=== PATIENT | male | born 1995 | race Caucasian/White ===

== ENCOUNTER → 2017-07-18 | Outpatient (CLI) | payer BC ==
[~2017-07-18] MED LIST: INSDGI SC; NVLGI SQ; SERT-234 PO
[2017-07-18 13:41] LABS: AST/SGOT 23 U/L (15-37); BLOOD UREA NITROGEN 22 mg/dl (7-18); BUN/CREATININE RATIO 27.5 (10-20); CALCIUM 8.5 mg/dl (8.5-10.1); CARBON DIOXIDE 28 mmol/L (21-32); CHLORIDE 101 mmol/L (98-107); CREATININE 0.78 mg/dl (0.60-1.40); GLUCOSE 340 mg/dl (70-99); POTASSIUM 3.8 mmol/L (3.5-5.1); SODIUM 135 mmol/L (136-145)
[2017-07-18 13:45] LABS: ALB/GLOB RATIO 1.2 (0.9-2); ALKALINE PHOSPHATASE 117 U/L (45-117); ALT/SGPT 30 U/L (12-78); CHOLESTEROL 128 mg/dl (0-200); CHOLESTEROL/HDL RATIO 2.6; HDL CHOLESTEROL 49 mg/dl; LDL CHOLESTEROL CALCULATED 11 mg/dl; TRIGLYCERIDES 341 mg/dl (0-150); VERY LOW DENSITY LIPOPROT CALC 68 mg/dl
[2017-07-18 13:52] LABS: BETA-HYDROXYBUTYRATE 1.35 mg/dL (0.2-2.81)
[2017-07-18 14:33] LABS: ESTIMATED AVERAGE GLUCOSE 249 mg/dl; HA1C FLAG Normal (Normal)
[2017-07-18 15:24] LABS: CREATININE RANDOM URINE 64.9 mg/dl
[2017-07-18 15:38] LABS: RATIO 7.8 mcg/mg (0-30.0)
== END | disposition home or self-care (01) ==
LOC: C.LAB1850 11:55
PROVIDERS: ATTEND Physician Assistant
DX: E10.9 Type 1 diabetes mellitus without complications (principal)

== ENCOUNTER → 2017-08-11 | Day surgery (SDC) | payer BC ==
[2017-08-04 08:58] VITALS: Ht 185.4 cm; Wt 92.4 kg
--- NOTE | 2017-08-04 09:24 | PAT Medication Instructions ---
Service Date Aug 04, 2017. Current Home Medication List Doxycycline Monohydrate (Monodox), 100 MG PO BID Insulin Aspart (novoLOG INSULIN PUMP ), 1 EA N/A UD Multivitamin (Multivitamin), 1 TAB PO QAM Medication Instructions For Your Scheduled Surgery - Continue as directed: Insulin Aspart (novoLOG INSULIN PUMP ), 1 EA N/A UD CONTINUE BASAL INSULIN, BUT DO NOT GIVE BOLUS THE MORNING OF THE SURGERY - Hold the following medications the morning of surgery: Multivitamin (Multivitamin), 1 TAB PO QAM - Take the following medications the morning of surgery with a sip of water: Doxycycline Monohydrate (Monodox), 100 MG PO BID - Take the following medications as scheduled the night before surgery: Doxycycline Monohydrate (Monodox), 100 MG PO BID If you have any questions please call us at [phone] or [phone] or [phone]
[~2017-08-11] VITALS: Ht 185.4 cm; Wt 92.4 kg
[~2017-08-11] MED LIST changes: +ATROPINE SULFATE 0.1 MG/ML 5ML SYR IV PRN; +BACITRACIN OINT 15 GM TUBE ONE; +BUPIVACAINE 0.5 % 5 MG/1 ML PF 10ML VIAL ONE; +DEXAMETHASONE SOD INJ 4 MG/ML VIAL ONE; +DOXY100C76 PO; +EpHEDrine SULFATE INJ 50 MG/ML AMP IV PRN; +FENTANYL CITRATE INJ 50 MCG/1 ML 2 ML VIAL IV PRN; +FENTANYL CITRATE INJ 50 MCG/1 ML 2 ML VIAL ONE; +HYDR-5688 PO; -INSDGI SC; +INSPMPNVLG; +LIDOCAINE HCL 2% 2 ML VIAL (20MG/ML) ONE; +MIDAZOLAM HCL 1 MG/ML 2ML VIAL ONE; +MULT-506 PO; -NVLGI SQ; +ONDANSETRON INJ 2 MG/ML 2 ML VIAL IV PRN; +ONDANSETRON INJ 2 MG/ML 2 ML VIAL ONE; +OXYCODONE/ACETAMINOPHEN 5-325 TAB PO PRN; +PROPOFOL IV EMULSION 10 MG/ML 20 ML VIAL IV ONE; -SERT-234 PO; +SODIUM CHLORIDE 0.9% 1000ML 1,000 ML IV SCH
[2017-08-11] MEDS: LACTATED RINGER'S 1000ML 1,000 ML IV SCH ×2 (06:43→08:32)
--- NOTE | 2017-08-11 07:01 | History & Physical Bridge Note ---
H&P Re-Evaluation Bridge Note: I have examined the patient, reviewed the History & Physical and in the interval since the performance of the History & Physical I have noted the following changes of clinical significance: No changes noted
--- NOTE | 2017-08-11 08:03 | Discharge Instructions-SurgCtr ---
Discharge Instructions Date of Service Aug 11, 2017. Visit Reason for Visit: Phimosis Discharge Discharge Diagnosis / Problem: Phimosis Discharge Goals Goal(s): Decrease discomfort, Improve function, Increase independence, Improve disease control Activity Recommendations Activity Limitations: per Instructions/Follow-up section Lifting Limitations: none Exercise/Sports Limitations: none, gradually increase as tolerated (avoid weight lifting for 3-4 days; please avoid running for 5 days) May Resume Sexual Activity: after follow-up appointment (no sexual activity for 1 month) Shower/Bathe: keep incision dry (may shower on Monday) Driving or Machine Use: resume 1 day after discharge Anesthesia . Post Anesthesia Instructions: If you have had General Anesthesia or IV Sedation: * Do not drive today. * Resume driving when surgeon permits. * Do not make important decisions or sign legal documents today. * Call surgeon for: 1. Temperature elevations greater than 101 degrees F. 2. Uncontrollable pain. 3. Excessive bleeding. 4. Persistent nausea and vomiting. 5. Medication intolerance (nausea, vomiting or rash). * For nausea and vomiting use only clear liquids such as: tea, soda, bouillon until nausea subsides, then gradually increase diet as tolerated. * If you have any concerns or questions, call your surgeon's office. If physician is unavailable and it is an emergency, call 911 or go to the nearest emergency room. . Instructions / Follow-Up Instructions / Follow-Up Please keep your previously scheduled follow up appointment. Diet Recommendations Home Diet: no limitations, resume previous diet Procedures Procedures Performed: Circumcision Pending Studies Studies pending at discharge: no Medical Emergencies . Who to Call and When: Medical Emergencies: If at any time you feel your situation is an emergency, please call 911 immediately. . Non-Emergent Contact Non-Emergency issues call your: Urologist Call Non-Emergent contact if: you have a fever, temperature is above 101.5, your pain is not controlled, your pain is worsening . . "Provider Documentation" section prepared by Narciso Jones. . [place] Drug Monitoring Program Search Results: patient reviewed within database, no issues identified
--- NOTE | 2017-08-11 08:07 | [facility] Operative Report ---
Operative Report Operative Date Aug 11, 2017. Pre-Operative Diagnosis Phimosis Post-Operative Diagnosis Same Procedure(s) Performed Circumcision Surgeon Dr. Neil Daigle Rug [employer]ter [place] Surgeon(s) None Estimated Blood Loss 10 mL Findings Phimosis - unable to retract foreskin Specimens A. Foreskin Drains none Anesthesia Gen. Complication(s) None Disposition Recovery Room / PACU (stable) Indications Phimosis Description of Procedure The patient was identified in the preoperative holding area, appropriate informed consent reviewed and completed, and the patient was transported to the operating suite. Upon arrival he received appropriate general anesthesia was placed in supine position where he was sterilely prepped and draped in standard fashion. A dorsal penile block as well as a ring block was placed utilizing half percent Marcaine. I was unable to retract his foreskin, and in turn I made in dorsal slit which allowed me to fully expose the glans and retract the foreskin. Glans was healthy-appearing he did have smegma coating the back aspect of the glans and the coronal sulcus. This was cleaned and the glans reprepped with Betadine. I then marked both the proximal and distal incision circumferentially around the penis. Each of these incisions was then made utilizing a 15 blade scalpel. I contacted my 2 incisions by elevating the skin off of the underlying penile tissue and transecting it. I then removed this band of tissue circumferentially from the penis utilizing Bovie electrocautery. I obtained meticulous hemostasis from the underlying fascia. Then begin reapproximation of the penile shaft skin to the distal inner preputial skin. I begin with a midline stitch on the dorsal surface of the penis utilizing a 3-0 chromic stitch. I then placed a U stitch at the ventral surface midline. I placed a series of simple interrupted 3-0 chromic stitches circumferentially around the remaining aspects the penis until there was a complete reapproximation of the skin with good cosmetic result. Hemostasis was excellent. A dressing was placed around the incision, the patient was reversed from anesthesia and taken to PACU in stable condition. I attest to the content of the Intraoperative Record and any orders documented therein. Any exceptions are noted below.
--- NOTE | 2017-08-11 08:43 | Anesthesia Progress Nt - [facility] ---
Anesthesia Post Op Note Date & Time Aug 11, 2017 at 08:43 Vital Signs Pain Intensity: 0 Vital Signs Past 12 Hours Date Time Temp Pulse Resp B/P (MAP) Pulse Ox O2 Delivery O2 Flow Rate FiO2 08/11/17 07:56 36.3 54 16 110/50 99 Mask 6 08/11/17 06:22 36.6 60 16 141/70 (93) 96 Room Air Notes Mental Status: alert / awake / arousable, participated in evaluation Pt Amnestic to Procedure: Yes Nausea / Vomiting: adequately controlled Pain: adequately controlled Airway Patency, RR, SpO2: stable & adequate BP & HR: stable & adequate Hydration State: stable & adequate Anesthetic Complications: no major complications apparent
[2017-08-11 09:11] VITALS: BP 108/64; PULSE 48; TEMP 36.7; O2SAT 100
== END | disposition home or self-care (01) ==
LOC: X.SURG 06:17
PROVIDERS: ATTEND Urology
DX: N47.1 Phimosis (principal); E03.9 Hypothyroidism, unspecified; E10.65 Type 1 diabetes mellitus with hyperglycemia; R63.5 Abnormal weight gain; Z79.4 Long term (current) use of insulin; Z79.899 Other long term (current) drug therapy

== ENCOUNTER → 2018-02-07 | Outpatient (CLI) | payer OTHER ==
[~2018-02-07] MED LIST changes: -ATROPINE SULFATE 0.1 MG/ML 5ML SYR IV PRN; -BACITRACIN OINT 15 GM TUBE ONE; -BUPIVACAINE 0.5 % 5 MG/1 ML PF 10ML VIAL ONE; -DEXAMETHASONE SOD INJ 4 MG/ML VIAL ONE; -EpHEDrine SULFATE INJ 50 MG/ML AMP IV PRN; -FENTANYL CITRATE INJ 50 MCG/1 ML 2 ML VIAL IV PRN; -FENTANYL CITRATE INJ 50 MCG/1 ML 2 ML VIAL ONE; -LIDOCAINE HCL 2% 2 ML VIAL (20MG/ML) ONE; -MIDAZOLAM HCL 1 MG/ML 2ML VIAL ONE; -ONDANSETRON INJ 2 MG/ML 2 ML VIAL IV PRN; -ONDANSETRON INJ 2 MG/ML 2 ML VIAL ONE; -OXYCODONE/ACETAMINOPHEN 5-325 TAB PO PRN; -PROPOFOL IV EMULSION 10 MG/ML 20 ML VIAL IV ONE; -SODIUM CHLORIDE 0.9% 1000ML 1,000 ML IV SCH
[2018-02-07 15:26] LABS: ALBUMIN 3.9 gm/dl (3.4-5.0); ALKALINE PHOSPHATASE 94 U/L (45-117); ALT/SGPT 23 U/L (12-78); AST/SGOT 15 U/L (15-37); BLOOD UREA NITROGEN 15 mg/dl (7-18); CARBON DIOXIDE 30 mmol/L (21-32); CHOLESTEROL 159 mg/dl (0-200); CREATININE 0.89 mg/dl (0.60-1.40); GLUCOSE 291 mg/dl (70-99); LDL CHOLESTEROL CALCULATED 87 mg/dl; POTASSIUM 4.1 mmol/L (3.5-5.1); SODIUM 137 mmol/L (136-145); TOTAL PROTEIN 7.1 gm/dl (6.4-8.2)
[2018-02-07 15:28] LABS: HEMOGLOBIN A1C 9.2 % (4.5-5.6)
== END | disposition home or self-care (01) ==
LOC: C.LAB1850 13:21
PROVIDERS: ATTEND Physician Assistant
DX: E10.9 Type 1 diabetes mellitus without complications (principal)